=== PATIENT | male | born 1990 | race Caucasian/White ===

== ENCOUNTER 2021-12-28 12:00 | Emergency (ER) | payer MEDICAID, SELFPAY ==
[2021-12-28 12:01] VITALS: BP 167/101; PULSE 96; RESP 14; TEMP 36.2; O2SAT 97; BMI 40.1
--- NOTE | 2021-12-28 12:11 | ED.VIS.LOWEX ---
HPI History of Present Illness Chief Complaint: Lower Extremity Injury Detail of Chief Complaint: Injury left foot after fall x2 Informant: patient and family Occured/Mechanism Mechanism/Context: Yes blunt trauma, Yes fall and Yes same level fall Comment: Patient states he tripped over the puppy Onset/Context/Timing Onset: Days (Up in a couple of days ago) Context: Sudden Onset Timing: Continuous and Waxes and wanes Quality of Pain: Dull and Aching Location: Over the tarsal bones left foot Current Severity: Mild Maximum Severity: Severe Worsened by: Weightbearing Relieved by: Improves if elevated Associated Symptoms Associated Symptoms: Positive for Loss of Funtion; Negative for Parasthesia or Weakness Narrative Narrative: Patient 31-year-old male who is cognitively impaired brought to the emergency room because of persistent pain that he localizes over the left midfoot. This occurred after he tripped x2. He states he tripped over a puppy. He states the pain is worse when he bears weight. He denies numbness or tingling. Tetanus Immunization: Unknown Prior similar symptoms: No Recent Illness/Hospitalization: No PFSH PFSH Medical History (Updated 12/28/21 @ 13:[address] Demarcus Rivera MD) Gout Hypertension Sleep apnea Home Medications allopurinol 12/28/21 [History Last Taken Unknown] naproxen 500 mg tablet 500 mg PO BID #10 tabs 12/28/21 [Rx Last Taken Unknown] Allergy/AdvReac Type Severity Reaction Status Date / Time alcohol Allergy Anaphylaxis Verified 12/28/21 12:02 Social History (Updated 12/28/21 @ 12:[address] Demarcus Rivera MD) household members: family Smoking Status: Never smoker substance use type: does not use ROS ROS ED Constitutional Constitutional ED: Denies chills, fever(s), subjective, sweats or weight loss Musculoskeletal Musculoskeletal: Reports other Details: Family states has history of gout ; Denies arthralgias, back pain, myalgias or neck pain Integumentary Denies Abrasions or rash Neurologic Neurologic: Denies paresthesias or weakness Hematologic/Lymphatic Hematologic/Lymphatic: Denies easy bleeding or easy bruising EXAM Physical Exam Const Vital Signs: 12/28/21 12:01 Temperature 97.2 F L Temperature Source Temporal Pulse Rate 96 Respiratory Rate 14 Blood Pressure 167/101 H Blood Pressure Mean 123 Pulse Ox 97 Oxygen Delivery Method Room Air Positive well nourished, well developed and obese General Appearance ED: well developed and NAD Nutritional Appearance: obese HEENT Reports moist mucous membranes HEENT Narrative: Ears normal. Nares patent. No dental trauma. normocephalic and atraumatic Eyes PERRL Eyes Narrative: Extract muscle intact her sclera is anicteric. Neck full ROM and supple Resp normal respiratory effort Cardio regular rate and regular rhythm Extremity full ROM; Negative for normal to inspection Extremity Narrative: There is soft tissue swelling noted over the tarsal bones dorsal surface. There is pain to palpation. There is no pain the patient of the lateral or medial malleolus. There is no pain ovation of the calcaneus. DP pulses palpable. There is no subungual hematoma noted of any toe. Capillary refill is normal. General Extremety ED: Yes weight-bearing difficulty; Negative for cyanosis or edema General Extremity: weight-bearing difficulty; Negative for cyanosis or edema Neuro CN's II-XII intact bilaterally, moves all extremities and no sensory deficits noted Sensorium / Orientation: alert Motor Exam: strength 5/5 throughout Psych mental status grossly normal Skin no wounds Lesions: no lesions Rashes: no rashes MDM MDM MDM Narrative Medical decision making narrative: X-ray was obtained to rule out fracture versus strain. Radiography X-Ray: Read by ED Physician (Three-view x-ray left foot was independently reviewed and interpreted by me as negative for fracture, subluxation dislocation. There is soft tissue swelling noted dorsal surface over the midfoot.) Diagnostic Testing: Clinical Impression(s) from Imaging Studies Foot X-Ray 12/28/21 12:20 IMPRESSION: Soft tissue swelling. Electronically Signed: Gordo Arevalo MD at 12:32 EDT , Discharge Plan Triage Chief Complaint: Lower Extremity Injury ED Provider: Demarcus Rivera Dx/Rx/DC Orders Clinical Impression: Strain of foot, left Instructions: Treating?Strains and Sprains Prescriptions: New naproxen 500 mg tablet 500 mg PO BID Qty: 10 0RF No Action allopurinol Primary Care Provider: Care Physician,No Primary Referrals: Airam,Rosario, DO [Med Staff - Angio Technologist] - 1 Week if not improving Care Physician,No Primary [Primary Care Provider] - Disposition Disposition: Home, Self Care
--- NOTE | 2021-12-28 12:20 | RAD_ITS ---
STUDY: X-RAY - LEFT FOOT CLINICAL: Male, 31 years old. Injury/Pain TECHNIQUE: 3 view(s) of the foot. COMPARISON: None. FINDINGS: Normal talus, calcaneus, and tarsal bones. Normal visualized subtalar, talonavicular, calcaneocuboid, tarsal and tarsometatarsal articulations. Normal metatarsi. Normal metatarsophalangeal joint of the great toe. Normal tibial and fibular sesamoid bones. Normal interphalangeal joint of the great toe. Normal phalanges of the great toe. Normal second through fifth metatarsophalangeal joints. Normal interphalangeal joints and phalanges of the lesser toes. Soft tissue swelling. RAD/Foot min 3 Views IMPRESSION: Soft tissue swelling. Electronically Signed: Gordo Arevalo MD at 12:32 EDT ,
== END 2021-12-28 13:48 | disposition home or self-care (01) ==
PROVIDERS: Emergency Provider Emergency Medicine; Visit Provider Emergency Medicine
DX: S96.912A Strain of unspecified muscle and tendon at ankle and foot level, left foot, initial encounter (principal); Z68.41 Body mass index [BMI] 40.0-44.9, adult; W18.09XA Striking against other object with subsequent fall, initial encounter; I10 Essential (primary) hypertension; G31.84 Mild cognitive impairment of uncertain or unknown etiology; E66.9 Obesity, unspecified; Z79.899 Other long term (current) drug therapy
CPT/HCPCS: 73630; 99282

== ENCOUNTER 2022-01-24 14:02 | Emergency (ER) | payer MEDICAID, SELFPAY ==
[2022-01-24 14:02] VITALS: BP 139/94; PULSE 113; RESP 18; TEMP 35.7; O2SAT 98; BMI 40.1
--- NOTE | 2022-01-24 14:14 | RAD_ITS ---
STUDY: X-RAY - RIGHT SHOULDER REASON FOR EXAM: Male, 31 years old. Pain following a lifting injury. TECHNIQUE: 4 view(s) of the shoulder. COMPARISON: None. FINDINGS: Normal glenohumeral articulation. Normal acromioclavicular joint. Normal acromion. Normal humeral head and visualized proximal humerus. The soft tissue structures are unremarkable. Normal visualized pulmonary apex. RAD/Shoulder min 2 Views IMPRESSION: Normal x-ray examination of the shoulder. Electronically Signed: Gordo Arevalo MD at 15:04 EDT ,
--- NOTE | 2022-01-24 14:15 | EX.ED.UPPERE ---
HPI History of Present Illness Chief Complaint: Upper Extremity Injury Informant: patient and family Onset/Context/Timing Onset: Days (6 days) Context: Gradual Onset Current Severity: Moderate Maximum Severity: Moderate Narrative Narrative: Patient presents secondary to right upper extremity pain. He is complaining of pain around his elbow as well as his right shoulder. Symptoms have been ongoing for the past 6 days. Family states that he was moving 50 pound feed bags out of the car shortly before he started complaining of pain. He is right-hand dominant. He denies paresthesias. Has been taking Tylenol and ibuprofen intermittently. [facility] Medical History Gout Hypertension Sleep apnea Home Medications naproxen 500 mg tablet (Naprosyn) 500 mg PO BID PRN pain #20 tabs 01/24/22 [Rx Last Taken Unknown] Allergy/AdvReac Type Severity Reaction Status Date / Time alcohol Allergy Hives Verified 01/24/22 14:04 Social History household members: family Smoking Status: Never smoker substance use type: does not use ROS ROS ED Constitutional Constitutional ED: Denies chills or fever(s) Eyes Eyes: Denies change in vision or discharge from eye(s) ENT ENT ED: Denies discharge from eye(s), rhinorrhea or sore throat Cardiovascular Cardiovascular: Denies chest pain or palpitations Respiratory/Chest Respiratory/Chest: Denies cough or dyspnea Gastrointestinal Gastrointestinal: Denies abdominal pain, diarrhea, nausea or vomiting Genitourinary Genitourinary ED: Denies dysuria Musculoskeletal Musculoskeletal: Reports extremity pain; Denies back pain Integumentary Denies Abrasions or rash Neurologic Neurologic: Denies headache(s) or paresthesias Psychiatric Psychiatric: Denies anxiety or depression Allergic/Immunologic Allergic/Immunologic ED: Denies lip swelling or urticaria EXAM Physical Exam Const Vital Signs: 01/24/22 14:02 Temperature 96.3 F L Temperature Source Temporal Pulse Rate 113 H Respiratory Rate 18 Blood Pressure 139/94 H Blood Pressure Mean 109 Pulse Ox 98 Oxygen Delivery Method Room Air Positive well nourished and well developed General Appearance ED: well developed HEENT Reports normocephalic and head/scalp atraumatic Eyes PERRL and EOMs intact bilaterally Neck supple Chest Wall inspection of chest normal and palpation of chest normal Resp normal respiratory effort and clear to auscultation bilaterally Cardio regular rate and regular rhythm GI normal to inspection, nondistended, normoactive bowel sounds Palpation: soft Extremity Extremity Narrative: Tenderness palpation over the right humeral head. No evidence of dislocation. Patient unable to completely raise his arm above his head. He also has focal tenderness at the right elbow. Strong distal pulses are noted but strong hand grasp. Normal sensation. Neuro oriented x3 and no sensory deficits noted Sensorium / Orientation: alert Psych mental status grossly normal Skin no rashes or lesions noted MDM MDM MDM Narrative Medical decision making narrative: Patient given naproxen for pain. Shoulder and elbow x-rays obtained. Radiography Diagnostic Testing: Radiology Impression Shoulder X-Ray 01/24/22 14:14 IMPRESSION: Normal x-ray examination of the shoulder. Electronically Signed: Gordo Arevalo MD at 15:04 EDT , Elbow X-Ray 01/24/22 14:31 IMPRESSION: Normal x-ray examination of the elbow. Electronically Signed: Gordo Arevalo MD at 14:56 EDT , Treatment and Re-Evaluation Narrative: X-ray of the right shoulder and right elbow per my interpretation reveal no acute bony findings. Radiology interpretation is reviewed. Test results discussed with patient and sister at bedside. He will be given a prescription for naproxen and referred to local primary care physician as well as orthopedics. Discharge Plan Triage Chief Complaint: Upper Extremity Injury ED Provider: Esmer Alcala Dx/Rx/DC Orders Clinical Impression: Sprain of right shoulder Instructions: ED Shoulder Sprain Prescriptions: New naproxen [Naprosyn] 500 mg tablet 500 mg PO BID PRN (Reason: pain) Qty: 20 0RF Primary Care Provider: Care Physician,No Primary Referrals: Joey Stahl DO [Med Staff - Active Staff] - As Needed Jennifer Mora MD [Med Staff - Financial Sales Associate] - As Needed Care Physician,No Primary [Primary Care Provider] - Disposition Disposition: Home, Self Care
--- NOTE | 2022-01-24 14:31 | RAD_ITS ---
STUDY: X-RAY - RIGHT ELBOW REASON FOR EXAM: Male, 31 years old. Pain TECHNIQUE: 3 view(s) of the elbow. COMPARISON: None. FINDINGS: Normal visualized humerus, radius and ulna. Normal radiocapitellar and ulnotrochlear articulations. The soft tissue structures are unremarkable. RAD/Elbow min 3 Views IMPRESSION: Normal x-ray examination of the elbow. Electronically Signed: Gordo Arevalo MD at 14:56 EDT ,
[2022-01-24] MEDS: Naproxen 500 MG Tablet PO (15:42)
[2022-01-24 15:45] VITALS: PULSE 64; RESP 17; O2SAT 99
== END 2022-01-24 15:46 | disposition home or self-care (01) ==
PROVIDERS: Emergency Provider Emergency Medicine; Visit Provider Emergency Medicine
DX: S43.401A Unspecified sprain of right shoulder joint, initial encounter (principal); X50.0XXA Overexertion from strenuous movement or load, initial encounter; I10 Essential (primary) hypertension; M10.9 Gout, unspecified; G47.30 Sleep apnea, unspecified
CPT/HCPCS: 73030; 73080; 99283

== ENCOUNTER 2023-01-05 19:52 | Emergency (ER) | payer MEDICAID, SELFPAY ==
[2023-01-05 19:53] VITALS: BP 152/100; PULSE 122; RESP 18; TEMP 36.8; O2SAT 97
[2023-01-05 20:03] VITALS: BMI 38.5
--- NOTE | 2023-01-05 20:37 | RAD_ITS ---
INDICATION: cough EXAMINATION/TECHNIQUE: X-RAY - XR Chest 2 Views COMPARISON: No previous relevant examinations available for comparison.. FINDINGS: LIFE-SUPPORT AND LINES: 1. None HEART AND VESSELS: The cardiac silhouette, pulmonary vasculature have normal appearance. No evidence of congestive failure. LUNGS AND PLEURAL SPACES: Lungs are clear. No focal infiltrate, consolidation or effusions. No evidence of pneumothorax. No pulmonary mass is noted. MEDIASTINUM AND HILAR REGIONS: No masses adenopathy noted. No areas of calcification. Visualized upper airway is normal in position. BONY ELEMENTS: No acute bony changes noted. RAD/Chest PA and Lateral IMPRESSION: 1. No evidence of acute cardiopulmonary process Electronically Signed: Ever Wang MD at 21:04 EDT ,
--- NOTE | 2023-01-05 20:52 | EX.ED.DYSGE1 ---
HPI <JUAN C Hernandez - Last Filed: 01/05/23 21:35> History of Present Illness Chief Complaint: Cough Narrative Narrative: Patient presenting today with a productive cough, intermittent fever, lightheadedness, and rhinorrhea that he has had since Sunday. His sister is here being evaluated for the same thing. He reports that he has been eating and drinking normally and denies any abdominal pain, nausea, vomiting, diarrhea, and urinary symptoms. He denies chest pain and shortness of breath. PFSH <JUAN C Hernandez - Last Filed: 01/05/23 21:35> [facility] Medical History Gout Hypertension Sleep apnea Home Medications naproxen 500 mg tablet (Naprosyn) 500 mg PO BID PRN pain #20 tabs 01/24/22 [Rx Last Taken Unknown] allopurinol 300 mg tablet mg 01/05/23 [History Last Taken Unknown] colchicine (gout) 0.6 mg tablet mg 01/05/23 [History Last Taken Unknown] cyanocobalamin (vitamin B-12) 1,000 mcg tablet mcg 01/05/23 [History Last Taken Unknown] dicyclomine 10 mg capsule mg 01/05/23 [History Last Taken Unknown] ergocalciferol (vitamin D2) 1,250 mcg (50,000 unit) capsule 01/05/23 [History Last Taken Unknown] losartan 50 mg tablet mg 01/05/23 [History Last Taken Unknown] meloxicam 7.5 mg tablet mg 01/05/23 [History Last Taken Unknown] Allergy/AdvReac Type Severity Reaction Status Date / Time alcohol Allergy Hives Verified 01/05/23 19:56 Social History household members: family Smoking Status: Never smoker substance use type: does not use ROS <JUAN C Hernandez - Last Filed: 01/05/23 21:35> ROS ED Constitutional Constitutional ED: Denies chills or fever(s) Eyes Eyes: Denies blurry vision or diplopia Cardiovascular Cardiovascular: Denies chest pain or palpitations Respiratory/Chest Respiratory/Chest: Reports cough; Denies dyspnea, tachypnea or wheezing Gastrointestinal Gastrointestinal: Denies abdominal pain, nausea or vomiting Genitourinary Genitourinary ED: Denies dysuria, hematuria or urinary urgency Musculoskeletal Musculoskeletal: Denies arthralgias or myalgias Integumentary Denies rash Neurologic Neurologic: Denies paresthesias or weakness EXAM <JUAN C Hernandez - Last Filed: 01/05/23 21:35> Physical Exam Const Vital Signs: 01/05/23 19:53 01/05/23 20:06 Temperature 98.3 F Temperature Source Temporal Pulse Rate 122 H Respiratory Rate 18 Respiratory Effort Normal Non-Labored Respiratory Depth Normal Respiratory Pattern Normal Blood Pressure 152/100 H Blood Pressure Mean 117 Pulse Ox 97 Oxygen Delivery Method Room Air Positive well nourished, well developed and no apparent distress General Appearance ED: well developed HEENT Reports normocephalic and head/scalp atraumatic Mouth ED: Yes moist mucous membranes normal Eyes PERRL and EOMs intact bilaterally Neck full ROM and supple Chest Wall inspection of chest normal Resp normal respiratory effort and clear to auscultation bilaterally Cardio regular rate and regular rhythm GI soft to palpation, non-tender, non-distended and no masses Back/Spine normal ROM and normal to inspection Extremity normal to inspection and full ROM Neuro oriented x3, CN's II-XII intact bilaterally, moves all extremities, no focal motor deficits and no sensory deficits noted Sensorium / Orientation: awake and alert Psych mental status grossly normal and thought process normal Skin no rashes or lesions noted and no wounds <Dr. Kb Singh MD - Last Filed: 01/05/23 21:16> Physical Exam Const Vital Signs: 01/05/23 19:53 01/05/23 20:06 Temperature 98.3 F Temperature Source Temporal Pulse Rate 122 H Respiratory Rate 18 Respiratory Effort Normal Non-Labored Respiratory Depth Normal Respiratory Pattern Normal Blood Pressure 152/100 H Blood Pressure Mean 117 Pulse Ox 97 Oxygen Delivery Method Room Air MDM <JUAN C Hernandez - Last Filed: 01/05/23 21:35> [facility] Narrative Medical decision making narrative: Patient presenting today just overall not feeling well. He has had a productive cough, fever, lightheadedness, and runny nose over the past several days. His sister is here being evaluated for similar symptoms. I do feel that this is viral in nature. COVID and flu swabs will be obtained. He is tolerating p.o. fluids so I do not think that there is an indication for IV fluids at this time. Patient did test positive for COVID, chest x-ray does not show any signs of pneumonia. He has been given supportive care measures and will be discharged home in stable condition. He is comfortable with plan and has been given return instructions Radiography X-Ray: Read by ED Physician and Read by Radiologist Diagnostic Testing: Clinical Impression(s) from Imaging Studies Chest X-Ray 01/05/23 20:37 IMPRESSION: 1. No evidence of acute cardiopulmonary process Electronically Signed: Ever Wang MD at 21:04 EDT , <Dr. Kb Singh MD - Last Filed: 01/05/23 21:16> MDM Radiography Diagnostic Testing: Clinical Impression(s) from Imaging Studies Chest X-Ray 01/05/23 20:37 IMPRESSION: 1. No evidence of acute cardiopulmonary process Electronically Signed: Ever Wang MD at 21:04 EDT , Treatment and Re-Evaluation :: I have personally performed a face to face assessment of the patient and have reviewed the CRISTOBAL Note. I performed a substantive portion of the visit including all aspects of the following. My sood findings include: History: Patient presents with cough. This been going on for couple days. He has a family member with similar symptoms. Has had fevers. Appetite is down but has been able to eat. He has been drinking fluids. He is not having chest pains. No abdominal pain. No myalgias. He also has a bit of a sore throat but no trouble swallowing. Exam: Patient awake alert. No acute distress. HEENT shows mild erythema of the throat but no exudate. Voice is normal. No sinus tenderness. Neck is supple. No JVD or stridor is heard. Lungs are overall clear. But when I have him take a deep breath he does cough. I do not hear rhonchi and I do not hear wheezing at this time. Heart is regular. Rate about 110. But pulses are normal peripherally. There is no peripheral edema or tenderness. I do not think this represents a PE. Medical Decision Making: Patient will have COVID and x-ray done. This may be viral syndrome since he has other family members affected with the same symptoms at about the same timing. But not all members are affected. I do not think this represents carbon monoxide poisoning. Discharge Plan Triage Chief Complaint: Cough ED Midlevel Provider: Celia Cotto ED Provider: Kb Singh Dx/Rx/DC Orders Clinical Impression: COVID-19 Instructions: Caring for Someone Who Has COVID-19 Prescriptions: No Action naproxen [Naprosyn] 500 mg tablet 500 mg PO BID PRN (Reason: pain) Qty: 20 0RF losartan 50 mg tablet Patient Comments: TAKE 1 TABLET BY MOUTH EVERY DAY cyanocobalamin (vitamin B-12) 1,000 mcg tablet Patient Comments: TAKE 2 TABLETS BY MOUTH EVERY DAY meloxicam 7.5 mg tablet Patient Comments: TAKE 1 TABLET BY MOUTH DAILY allopurinol 300 mg tablet ergocalciferol (vitamin D2) 1,250 mcg (50,000 unit) capsule Patient Comments: TAKE 1 CAPSULE BY MOUTH twice weekly colchicine (gout) 0.6 mg tablet dicyclomine 10 mg capsule Patient Comments: TAKE 1 CAPSULE BY MOUTH FOUR TIMES DAILY NEEDED FOR DIARRHEA Primary Care Provider: Care Physician,No Primary Referrals: Care Physician,No Primary [Primary Care Provider] - Activity Restrictions/Additional Instructions: Stay well-hydrated, alternate Tylenol and ibuprofen for fever, get plenty of rest, follow-up with your PCP. Return for any worsening of your symptoms. Disposition Disposition: Home, Self Care
[2023-01-05 21:48] VITALS: BP 129/87; PULSE 100; RESP 18; O2SAT 98
== END 2023-01-05 21:49 | disposition home or self-care (01) ==
PROVIDERS: Emergency Provider Emergency Medicine; Visit Provider Emergency Medicine
DX: U07.1 COVID-19 (principal); I10 Essential (primary) hypertension; M10.9 Gout, unspecified
CPT/HCPCS: 71046; 87428; 99282

== ENCOUNTER 2024-07-29 11:06 | Outpatient (RCR) | payer MEDICAID, SELFPAY ==
--- NOTE | 2024-07-30 09:52 | HP.FCE ---
Task Lift Floor (Occasional 1-33% of Day): 20 Floor (Frequent 34-66% of Day): 10 Floor (Constant 67-100% of Day): 4.21 Floor PDL: Light Knee (Occasional 1-33% of Day): 25 Knee (Frequent 34-66% of Day): 12.5 Knee (Constant 67-100% of Day): 5.26 Knee PDL: Light Waist (Occasional 1-33% of Day): 25 Waist (Frequent 34-66% of Day): 12.5 Waist (Constant 67-100% of Day): 5.26 Waist PDL: Light Shoulder (Occasional 1-33% of Day): 25 Shoulder (Frequent 34-66% of Day): 12.5 Shoulder (Constant 67-100% of Day): 5.26 Shoulder PDL: Light Overhead (Occasional 1-33% of Day): 20 Overhead (Frequent 34-66% of Day): 10 Overhead (Constant 67-100% of Day): 4.21 Overhead PDL: Light Comments: Pt is considered to be light in all task lifts Work Activity/Posture Bending: Frequent Ability (34-66% of day) Squatting: No Ablility (0% of day) Kneeling: Occasional Ability (1-33% of day) Reaching out: Frequent Ability (34-66% of day) Reaching up: Occasional Ability (1-33% of day) Sitting: Frequent Ability (34-66% of day) Walking: Occasional Ability (1-33% of day) Standing: Occasional Ability (1-33% of day) Reference Reference: Duration Sedentary Sedentary Light Light Light Medium Medium Medium Heavy Very Heavy Heavy Occasional (0-33% of day) Frequent (34-66% of day) Constant (67-100% of day) 10 # Negligible Negligible 15 # 8 # Negligible 20 # 10# Negli. 35 # 18 # 7 # 50 # 25 # 10 # 75 # 100 # >100 # 38 # 50 # >50 # 15 # 20 # >20 # Patient Information Height: 5 ft 10 in Weight:: 122.47 kg Hand Dominance: R Medical History Medical History Including Restrictions: This 34 year old male arrives with dx of chronic gout, generalized weakness as well as polyarthragia. Per pt he has a hard time standing for extending periods of time. Pt does struggle with cognitive functioning per sister who is here during FCE he has had cog impairments since , throughout school pt was in special education. No formal diagnoses for cognition presented to this OT for FCE. Pt does take medication for gout per sister it is semi controlled on medication however does continue to have flare ups. 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 Pt has done OT and speech therapy while in school which ceased once pt was in highschool. pt saw PT for gout approx 1.5 years ago. per pt gout has recently spread to arms within the past 1.5 years as well. Pt reports flare ups into waist as well. Pt states he does have constant pain however location of pain switches spots. pt does not see pain management at this time. pt has not seen chiropractor. Per sister pt functions at 6th grade level however no formal documents presented to OT at this time. Pt typically has people write for him however is able to sign name. Diagnoses Diagnoses: chronic gout multiple sites, unspecified [id number] generalized weakness R53.1 polyarthragia M25.50 Symptoms Symptoms: pt reports pain L knee and R ankle at this time tylenol or ibprofen as needed for pain pt reports laying down assist with the pain numbness and tingling in R knee and L foot legs will occasionaly give out on him per pt approx 5x a month pt reports he looses balance quickly reports a beat in head per sister headaches since having seizure approx 2 years ago slow speech difficulty with problem solving and executive functioning Pain Pain: pt rates pain all over as 6.5/10 pain Jemal questionnaire Work History Work History: [employer] -- [employer]. working in 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 they let pt go due to not being fast enough Behavioral Behavioral: calm cooperative slow speaking requires increased thought for answering questions ADLS ADLS: pt live with sister in private home with 2 steps to enter with B hand rails. Pt lives in basement requiring flight of stairs to get to with railing. Pt is able to complete own self care tasks pt is able to cook basic items per sister cleaning he is able to do 70-80% then stops due to cognition. sister does have a pet dog which is a pitbull. pt states he is able to do small walk with dog approx 5 min. pt bathroom is a t/s combo no bar no seat at this time standing for shower. pt commode is standard no grab bars. pt does not drive sister drives pt. sister also handles his finances as well as medications. sister uses pill organizer and then pt is able to follow it with occ reminders. pt is able to be at house on own for a few hours. pt has not feel in past year however states a lot of close calls. Pt uses a quad cane sister got from [place] for longer distances. around home pt does not need AD for mobility. Physical Examination Physical Examination: baseline 02 97% and HR 94% ROM: Upper Extremity: wfl increased shakiness when opposing thumb to LF Lower Extremity: L knee flexion 102 degrees R knee flexion 80 degrees all other ROM in normal limits popping sensation R ankle with flexion/extension Strength: tested using fet peak force Upper Extremity: L shoulder flexion: 7.4# R shoulder flexion: 4.1# L bicep: 9.6# R bicep: 7.4# L tricep: 5.5# R tricep: 6.6# L ER: 4.3# R ER: 6.0# Lower Extremity: L hip flexion:4.7# R hip flexion: 6.5# L quad: 7.7# R quad: 4.5# L hamstrin.3# R hamstrin.1# Right Stars Specialist Strength Average: 4.00 Right Stars Specialist Strength Percentile: <1.1 percentile Left Stars Specialist Strength Average: 1.00 Left Stars Specialist Strength Percentile: <.8 percentile Right Lateral Pinch Average: 2.00 Right Lateral Pinch Percentile: <10th percentile Left Lateral Pinch Average: 0.33 Left Lateral Pinch Percentile: <10th percentile Right Tripod Pinch Average: 0 Right Tripod Pinch Percentile: <10th percentile Left Tripod Pinch Average: 0 Left Tripod Pinch Percentile: <10th percentile Comments: pt states occ twitching of hands when trying to apply force to complete things Sensation: semmes- tee monofilament assessment L hand 3.22 diminished light touch all digits R hand thumb to RF at 2.83 considered normal and LF 3.22 diminished light touch Fine Motor: 9 hole peg assessment: L hand: trial 1: 57 sec trial 2: 47 sec trial 3: 48 sec L hand average: 50.6 sec indicating 0th percentile for age and gender R hand: trial 1: 50 sec trial 2: 47 sec trial 3: 47 sec R hand average 48 sec indicating pt 0th percentile for age and gender Balance: standing forward reach score 6 score of 6 or less indicates pt is at significant risk for falls Non Material Handling Activities Bending: trial of 3: 3 10x at own pace: 10 10x fast: 10 ---- maintains steady pace unable to increase pace during trials HR 122 bpm and 09 95% uses unilateral support of desk to complete hinges at waist little to no bend at waist Squatting: trial of 3: 0 10x at own pace: 0 10x fast: 0 with first trial looses balance backward unable to come to half squat due to decreased balance Kneeling: trial of 3: 2 --- unable to complete last trial due to shakiness and knee giving out switched legs with each trial 10x own pace: 0 10x fast: 0 HR 136 bpm and 02 96% uses external support of desk to perform Reaching out/up: reaching out trial of 3: 3 10x at own pace: 10 10x fast: 10 ---- keeps similar pace unable to speed task up reaching up trial of 3: 3 10x at own pace: 4--- has to stop due to sharp pain in R shoulder 11/11 10x fast: 0 HR 88 bpm and 02 94% does not loose balance during reaching task however keeps slow steady pace Walking: pt is able to walk approx 200 feet before needing to sit for RB during FCE slow pace and pts RLE externally rotates pt walks on lateral aspect of foot increased headache toward end of FCE walking back to desk no AD during mobility this date wide stance when walking Standing: per pt report can stand for approx 10-15 min before needing to sit for RB pt stands during FCE for approx 10 min before sitting for RB Sitting: pt sits for intake of FCE approx 35-40 min--- pt does weight shift often during intake per pt report he could sit for approx 3-4 hours straight however does change position every 30 min per sister pt does weight shift alot Climbing Stairs: pt does have to ascend and descend flight of steps everyday pt is able to complete x10 ascending and descending ascending alternating feet very slow pace BUE support of bars descending B bars for support step to pattern with R LE externally rotated Dynamic Occasional Lifting Capacity Floor Lift: box (15#)+ 5#= 20# total HR 122 bpm 02 96% hinges at hips little to no bend at knees uses box and counter to climb back up to stand position overall pain rating 5/10 Knee Lift: box (15#)+ 10#= total of 25# HR 134 bpm and 02 97% hinges at waist little to no bend in knees during task pain rating 5/10 Waist Lift: box (15#)+ 10#= total of 25# HR 126 bpm and 02 96% pain at 5/10 able to take small step to L and bring back Shoulder Lift: box (15#)+10#= total of 25# HR 120 bpm and 02 94% stands far from counter uses straight arm to lift it cues needed to stand closer and bend at arms shakiness during task noted Overhead Lift: box (15#)+ 5#= total of 20# HR 105 bpm and 02 95% stands close and bends arm to complete shakiness during task to lift and then has to switch hand position once 3/4 way up pain 5/10 Carrying: box (15#)= 5#= total of 20# to OT filing cabinets and back HR 123 bpm and 02 97% pt is able to carry box 52 feet with R LE externally rotated carrys box with straight arms resting against body at hip/ groin region slow pace with small step pattern wide stance. Comments: This FCE does not have formal testing for cognition and does not reflect pt cognitive abilities to perform job tasks only physical abilities.
== END 2024-07-29 19:00 | disposition home or self-care (01) ==
LOC: OT 11:06
PROVIDERS: Referring Provider Physician Assistant Medical; Visit Provider Physician Assistant Medical
DX: M1A.09X0 Idiopathic chronic gout, multiple sites, without tophus (tophi) (principal); R53.1 Weakness; M25.50 Pain in unspecified joint
CPT/HCPCS: 97750